=== PATIENT | female | born 1945 | race Caucasian/White ===

== ENCOUNTER 2021-12-02 21:27 | Emergency (ER) | payer SELFPAY ==
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
--- NOTE | 2021-12-02 21:27 | ECG_ITS ---
[facility] Test Date: 2021-12-02 Pat Name: EDITH MADRIGAL Department: Room: Gender: Female Certified Professional Coder: : [id number] Requested By: Tika Howell Order Number: [id number] Jame MD: Phu Simons M.D. Measurements Intervals [place] Rate: 64 P: 83 MS: 166 QRS: 54 QRSD: 84 T: 56 QT: 408 QTc: 421 Interpretive Statements SINUS RHYTHM WITH OCCASIONAL SUPRAVENTRICULAR PREMATURE COMPLEXES No previous ECG available for comparison Electronically Signed On 12-02-2021 22:40:17 CDT by Phu Simons M.D. [id number] f
--- NOTE | 2021-12-02 21:27 | XRR_ITS ---
PROCEDURE INFORMATION: Exam: XR Chest Exam date and time: 12/02/2021 9:51 PM Age: 76 years old Clinical indication: Other: Stroke; Patient HX: L side flaccid w facial droop; Additional info: CVA TECHNIQUE: Imaging protocol: XR of the chest. Views: 1 view. COMPARISON: No relevant prior studies available. FINDINGS: Lungs: Unremarkable. No consolidation. Pleural spaces: Unremarkable. No pleural effusion. No pneumothorax. Heart/Mediastinum: Unremarkable. No cardiomegaly. Bones/joints: Unremarkable. XR/XR chest 1V portable [id number] IMPRESSION: No acute findings.
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
[2021-12-02 21:31] VITALS: BP 109/64; PULSE 70; RESP 15; TEMP 36.1; O2SAT 98; BMI 25.2
[2021-12-02 21:35] LABS: Basophils # 0.1 10^3/uL (0.0-0.1); Basophils % 0.8 %; Eosinophils # 0.1 10^3/uL (0.0-0.8); Hematocrit 38.1 % (37.0-47.0); Hemoglobin 12.7 g/dL (11.5-15.3); Lymphocytes # 0.8 10^3/uL (0.8-4.8); Lymphocytes % 12.7 %; Mean Corpuscular HGB Conc 33.3 g/dL (30.0-36.0); Mean Corpuscular Hemoglobin 32.4 pg (28.0-34.0); Mean Corpuscular Volume 97.2 fl (81-99); Monocytes # 0.2 10^3/uL (0.2-0.9); Monocytes % 3.8 %; Neutrophils # 5.08 10^3/uL (1.8-7.7); Neutrophils % 80.4 %; Nucleated Red Blood Cells % 0 %; Platelet Count 146 10^3/cmm (130-400); Red Blood Count 3.92 10^6/uL (4.1-5.3); Red Cell Distribution Width 12.1 % (12.1-15.1); White Blood Count 6.3 10^3/uL (4.0-10.0)
[2021-12-02 21:38] LABS: Glucose Point of Care 105 mg/dL (70-110)
[2021-12-02 21:52] LABS: Alanine Aminotransferase 15 U/L (0-33); Albumin Level 4.4 g/dL (3.5-5.2); Alkaline Phosphatase 84 IU/L (35-105); Aspartate Amino Transferase 26 U/L (0-32); Blood Urea Nitrogen 19 mg/dL (8-23); Calcium 9.6 mg/dL (8.5-10.5); Carbon Dioxide 19 mmol/L (22-29); Chloride 105 mmol/L (98-107); Glucose 141 mg/dL (65-115); Osmolality Calculated 289 mOsm/kg (285-295); Sodium 137 mmol/L (136-145); Total Bilirubin 0.5 mg/dL (0.15-1.2); Total Protein 6.4 g/dL (6.6-8.7)
[2021-12-02 21:56] LABS: INR 0.95 (0.8-1.2)
[2021-12-02 21:57] LABS: Partial Thromboplastin Time 25.1 SECONDS (23.9-36.7)
[2021-12-02 21:58] LABS: Urine Appearance Clear (CLEAR); Urine Color Yellow (Yellow); pH Urine 5 (5-7)
[2021-12-02 21:59] LABS: Add Urine Microscopic? YES; Bilirubin Urine Neg (Negative); Blood Urine Neg (Negative); Glucose Urine UA Norm (Normal); Ketones Urine Negative (Negative); Leukocyte Esterase Urine Negative (Negative); Nitrate Urine Negative (Negative); Protein Urine 1+ (Negative); Urobilinogen Urine Norm (Negative)
[2021-12-02 22:00] VITALS: BP 119/70; PULSE 71; RESP 21; O2SAT 98
[2021-12-02 22:02] LABS: Anion Gap 16.7 (5-19); Potassium 3.7 mmol/L (3.5-5.1)
[2021-12-02 22:07] LABS: Amphetamines Screen Urine Negative (Negative); Barbiturates Screen Urine Negative (Negative); Benzodiazepines Screen Urine Negative (Negative); Cocaine Screen Urine Negative (Negative); Opiate Screen Urine Negative (Negative); PCP Screen Urine Negative (Negative); THC Screen Urine Positive (Negative)
[2021-12-02 22:08] LABS: Add Urine Culture? No; Amorphous Sediment Urine 2+ /hpf; Bacteria Urine TRACE /hpf; Hyaline Casts Urine 0-4 /lpf; Mucus Urine 1+ /hpf; RBC Urine 0-4 /hpf (0-2); WBC Urine 0-4 /hpf (0-5)
[2021-12-02 22:30] VITALS: BP 100/59; PULSE 62; RESP 17; O2SAT 97
== END 2021-12-02 22:30 | disposition short-term general hospital (02) ==
PROVIDERS: Emergency Provider Emergency Medicine
DX: I63.9 Cerebral infarction, unspecified (principal); R29.716 NIHSS score 16
CPT/HCPCS: 36416; 51702; 70450; 71045; 80053; 80306; 81001; 82962; 85025; 85610; 85730; 93005; 96374; 99291; 99292; J2997